=== PATIENT | female | born 1980 | race Caucasian/White ===

== ENCOUNTER 2016-08-05 11:13 | Emergency (ER) | payer OTHER ==
--- NOTE | 2016-08-05 13:04 | ERNOTE ---
Animal Bite ER Date of Service: 08/05/16 Presenting Symptoms: bitten Time Seen by Provider: 08/05/16 12:54 Source: patient, RN notes reviewed Exam Limitations: no limitations Immunizations: IMMUNIZATION HX Immunizations Up to Date Yes History of Influenza Vaccine No Hx Pneumococcal Vaccination No Allergies/Adverse Reactions: Allergies penicillin G Allergy (Intermediate, Verified 08/05/16 11:21) rash Home Medications: HOME MEDICATIONS Dextroamphetamine/Amphetamine [Adderall 30 mg Tablet] 30 mg PO DAILY 08/05/16 [ Last Taken Unknown] Doxycycline Monohydrate 100 mg PO BID #6 tablet 08/05/16 [Last Taken Unknown] metroNIDAZOLE [Flagyl] 500 mg PO Q8H #9 tablet 08/05/16 [Last Taken Unknown] Narrative: 36 y/o female ambulatory to the ED for a dog bite to her left arm. She and her parents were attacked by 3 dogs around 1100 today. They were in their own yard when the dogs, who live nearby, came running into their yard. The police were notified and were at the scene. The dogs are being quarantined as their vaccination status is not known by their pointer helper. She denies any other injuries. Her last tetanus vaccine was less than a year ago. 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[employer] Location of Incident: Reports: home Animal Type: Reports: dog, neighborhood animal Animal Appearance: healthy Animal's Immunization Status: Reports: unknown Observation/Capture: Reports: animal known, animal can be observed for 10 days Context of Attack: Reports: unprovoked attack Severity of injury: Reports: bitten Location of Injury: Reports: upper extremity (L) Associated symptoms: Denies: numbness distally, pain on movement, tingling Prior Treatment: Denies: currently on antibiotics Review of Systems - Review of Systems Constitutional: Absent: recent illness, fever EYE: Present: no symptoms reported ENT: Present: no symptoms reported Respiratory: Present: no symptoms reported Cardiology: Present: no symptoms reported Gastrointestinal/Abdominal: Present: no symptoms reported Genitourinary: Present: no symptoms reported Musculoskeletal: Present: muscle pain. Absent: joint pain, joint swelling Skin: Present: lumps, change in color. Absent: rash, lesions Neurological: Absent: weakness, numbness, tingling Hematologic/Lymphatic: Absent: easy bruising, easy bleeding Psych: Present: no symptoms reported - Patient's Past Medical History Patient History - Medical: Other Patient History - Cardiac/Respiratory: No pertinent hx Patient History - Cancer: No Hx of Cancer Patient History - Surgical Procedures: Tubal Ligation, T & A Patient History - Other: None LMP (females 10-50): this week - Social History Living Situations: home Abuse History: No History of abuse Psych History: Hx of Anxiety, Hx of Depression Smoking Status: Current every day smoker Alcohol Use: none Drug Use: benzodiazepine, cocaine, heroin, marijuana, meth, other - Immunizations Immunizations Up to Date: Yes Hx Pneumococcal Vaccination: No History of Influenza Vaccine: No Physical Exam - Physical Exam General Appearance: Present: wd/wn, alert, no apparent distress Respiratory: Present: no respiratory distress, normal breath sounds, no accessory muscle use, lungs clear Cardiovascular/Chest: Present: regular rate, rhythm, no murmur, normal peripheral pulses Peripheral Pulses: N=norm/S=strong/W=weak/B=bound/A=absent: Radial (R): Strong, Radial (L): Strong Extremity Exam: Present: normal range of motion. Absent: joint swelling Neurological Exam: Present: alert, oriented, normal mood/affect, no motor/ sensory deficits Skin Exam: Present: normal color, warm/dry, other - puncture wound to left dorsal forearm with moderate surrounding edema and ecchymosis ED Progress - Vital Signs Patient's Vital Signs:: I have reviewed the patient's vital signs. Vital Signs: Vital Signs 08/05/16 08/05/16 11:18 12:39 Temperature 36.6 C 98.3 C H Pulse Rate 105 H 105 H Respiratory 16 16 Rate Blood Pressure 134/89 141/87 O2 Sat by Pulse 99 100 Oximetry - Progress/Reassessment Chief Complaint: Animal Bite Progress:: Improved Departure Clinical Impression: Dog bite of left forearm Qualifiers: Encounter type: initial encounter Qualified Code(s): S51.852A - Open bite of left forearm, initial encounter - Departure Disposition: Home Follow Up Needed Condition: Stable Instructions: Animal Bite Additional Instructions: Keep wound clean, apply antibiotic ointment as needed Ice to sore areas Tylenol and/or ibuprofen for pain Referrals: NONE,NONE [Primary Care Provider] - Prescriptions: Doxycycline Monohydrate 100 mg PO BID #6 tablet metroNIDAZOLE [Flagyl] 500 mg PO Q8H #9 tablet
[2016-08-05 13:15] VITALS: BP 138/82
--- OUTSIDE RECORDS SUMMARY | 2016-08-05 14:06 | XMS REPORT | Continuity of Care Document ---
:1980 Author Organization [facility] ([facility]) Address [address] [place] [address] Phone [phone] Care Team Providers Name Role Phone Prince Vasques Primary Care Provider [phone] Source Comments This disclosure is being made pursuant to the Care Everywhere program, applicable federal and state laws, and may not contain all informaitonavailable regarding this patient.[facility] ([facility]) Active Allergies and Adverse Reactions Allergen Noted Date Severity Reactions Comments Penicillins 05/09/2010 Unknown Current Medications Prescription Sig. Disp. Refills Start Date End Date Status ALBUTEROL INH Use by inhalation. Active HYDROcodone-acetaminoph Take 1-2 Tabs by 20 Tab 0 07/11/2010 Active en 5-500 mg per tablet mouth. Every 4-6 hrs PRN maximum 8 tabs/24 hours. Indications: Pain ibuprofen 800 mg tablet Take 1 Tab by mouth 25 Tab 0 07/11/2010 Active every 6 hours as needed. maximum 4 tabs/24 hours Indications: Pain chlorhexidine (PERIDEX) Take 10-15 mL by 473 mL 2 07/11/2010 Active 0.12 % oral rinse mouth 2 times daily. Swish and spit NPO 1/2 hour. 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
--- OUTSIDE RECORDS SUMMARY | 2016-08-05 14:06 | XMS REPORT | Continuity of Care Document ---
:1980 Author Organization [employer] [place] [address] Care Team Providers Name Role Phone Unavailable Primary Care Provider Unavailable Source Comments This disclosure is being made pursuant to the [employer] program and maynot contain all information available regarding this patient.[employer] Active Allergies and Adverse Reactions Not on File Current Medications Be aware that medications may not be up to date as of this document. Alwaysverify current medications with the patient. Not on file Active Problems Not on file Social History Tobacco Use Types Packs/Day Years Used Date Never Assessed Plan of Care Health Maintenance Due Date Last Done Comments Retired-Pertussis Vaccine Adult 1997 Retired-Tetanus Vaccine Adult 1997 Pap Smear 1999 Retired-INFLUENZA VACCINE 11/07/2014 Results from Last 3 Months Not on file
== END 2016-08-05 13:17 | disposition home or self-care (01) ==
LOC: ER 11:13
DX: S51.852A Open bite of left forearm, initial encounter (principal); W54.0XXA Bitten by dog, initial encounter; Y93.9 Activity, unspecified; Y92.007 Garden or yard of unspecified non-institutional (private) residence as the place of occurrence of the external cause

== ENCOUNTER 2016-11-01 12:07 | Emergency (ER) | payer OTHER ==
[2016-11-01 12:16] VITALS: BP 139/96
[2016-11-01 12:45] LABS: Urine Amorphous Sediment Moderate - 2+ (NONE-FEW); Urine Bacteria 2+; Urine RBC None Seen /hpf (0-5)
--- NOTE | 2016-11-01 14:35 | ERNOTE ---
ER Female HPI Date of Service: 11/01/16 Stated Complaint: URINATING BLOOD Time Seen by Provider: 11/01/16 14:17 Source: patient Immunizations: IMMUNIZATION HX Immunizations Up to Date Yes History of Influenza Vaccine No Hx Pneumococcal Vaccination No Allergies/Adverse Reactions: Allergies penicillin G Allergy (Intermediate, Verified 11/01/16 12:15) rash Home Medications: HOME MEDICATIONS Sulfamethoxazole/Trimethoprim [Bactrim Ds] 1 tab PO BID #20 tab 11/01/16 [Last Taken Unknown] Sulfamethoxazole/Trimethoprim [Bactrim Ds] 1 tab PO BID #20 tablet 11/01/16 [ Last Taken Unknown] - History of Present Illness Narrative: urinary symptoms of burning and frequency about 3 days ago Date (Duration): 10/28/16 Time (Timing): 08:00 Timing: Present: getting worse Quality: Present: severe, burning, cramping Onset Location: Present: suprapubic, vaginal Radiation: Present: none, suprapubic. Absent: RLQ, LLQ, back, right flank, left flank, groin, vaginal, urethral Prior Abdominal Problems: Present: recent trauma Sexual [place] History: Present: single partner Modifying Factors - (Improves): Present: other - has been using Pyridium with some improvement in the discomfort Modifying Factors - (Worsens): Present: urinating, other Associated Symptoms: Present: urinary frequency, polyuria. Absent: fever/chills , nausea, vomiting Prior Treatment: Present: other - she states she does not have a primary care physician has not been treated for these symptoms. Review of Systems - Review of Systems Constitutional: Present: no symptoms reported EYE: Present: no symptoms reported ENT: Present: no symptoms reported Respiratory: Present: no symptoms reported Cardiology: Present: no symptoms reported Gastrointestinal/Abdominal: Present: nausea, abdominal pain Genitourinary: Present: See HPI Musculoskeletal: Absent: See HPI Skin: Absent: See HPI Neurological: Present: no symptoms reported Endocrine: Present: See HPI Hematologic/Lymphatic: Present: no symptoms reported, See HPI All Other Systems: All systems neg except as marked - Patient's Past Medical History Patient History - Medical: No pertinent hx, Other Patient History - Cardiac/Respiratory: No pertinent hx Patient History - Cancer: No Hx of Cancer Patient History - Surgical Procedures: Tubal Ligation, T & A Patient History - Other: None LMP (females 10-50): last week - Social History Living Situations: home Abuse History: No History of abuse Psych History: Hx of Anxiety, Hx of Depression Smoking Status: Current every day smoker Alcohol Use: none Drug Use: benzodiazepine, cocaine, heroin, marijuana, meth, other - Immunizations Immunizations Up to Date: Yes Hx Pneumococcal Vaccination: No History of Influenza Vaccine: No Physical Exam - Physical Exam General Appearance: Present: wd/wn, alert, mild distress Head Exam: Present: normal inspection, no evidence of injury Eye Exam: Normal inspection: bilateral, PERRL: bilateral, EOMI: bilateral Ears, Nose, Throat: Present: normal ENT inspection, normal pharynx Neck: Present: normal inspection, nontender Respiratory: Present: no respiratory distress, normal breath sounds, no accessory muscle use, chest nontender, lungs clear, wheezing Cardiovascular/Chest: Present: regular rate, rhythm, no murmur Gastrointestinal/Abdominal: Present: normal bowel sounds, nontender, guarding - suprapubically, other - no CVA tenderness Rectal Exam: Present: deferred Back Exam: Present: normal inspection, normal range of motion, no CVA tenderness , no vertebral tenderness Extremity Exam: Present: normal inspection Neurological Exam: Present: alert, oriented, normal mood/affect, no motor/ sensory deficits Skin Exam: Present: normal color, warm/dry Pelvic Exam: Present: deferred ED Progress - Results and Orders Patient's Lab Results:: I have reviewed the patient's lab results. Results and Orders: Laboratory Tests 11/01/16 Unknown Urine RBC None seen Urine WBC 10-25 H Ur Epithelial Cells 5-10 H Amorphous Sediment Moderate - 2+ H Urine Bacteria 2+ H Urine Comment Culture ordered L - Vital Signs Patient's Vital Signs:: I have reviewed the patient's vital signs. Vital Signs: Vital Signs 11/01/16 12:13 Temperature 36.7 C Pulse Rate 114 H Respiratory 16 Rate Blood Pressure 139/96 O2 Sat by Pulse 96 Oximetry - Progress/Reassessment Chief Complaint: Genitourinary Problem Progress:: Unchanged Plan - Plan Plan: Results of UA discussed with patient, Push fluids, no family doctor to follow up will need choose a PCP for follow up Departure Clinical Impression: Urinary tract infection Qualifiers: Urinary tract infection type: acute cystitis Hematuria presence: without hematuria Qualified Code(s): N30.00 - Acute cystitis without hematuria - Departure Disposition: Home self-care Condition: Good Additional Instructions: take medications as prescribed Bactrim DS on twice a day for 10 days Drink plenty of fluids to stay hydrated. Referrals: Carmen Quintana FNP [[facility]] - 11/11/16 (call for new patient appointment ) Grayson Bautista MD [Staff Physician] - 11/11/16 (call for new patient appointment) Prescriptions: Sulfamethoxazole/Trimethoprim [Bactrim Ds] 1 tab PO BID #20 tab Sulfamethoxazole/Trimethoprim [Bactrim Ds] 1 tab PO BID #20 tablet
== END 2016-11-01 14:31 | disposition home or self-care (01) ==
LOC: ER 12:07
DX: N30.00 Acute cystitis without hematuria (principal); F17.200 Nicotine dependence, unspecified, uncomplicated